=== PATIENT | male | born 1990 | race Caucasian/White ===

== ENCOUNTER 2019-10-10 09:03 | Emergency (ER) | payer MEDICAID, SELFPAY ==
[2019-10-10 09:16] VITALS: BP 132/80; PULSE 70; RESP 18; TEMP 36.6; O2SAT 100
--- NOTE | 2019-10-10 09:26 | ED.SKABFB ---
HPI - Skin/Abscess/Foreign Bdy General Stated complaint: Foreign/Abcess Time Seen by Provider: 10/10/19 09:26 Source: patient and RN notes reviewed History of Present Illness HPI narrative: Patient is a 29-year-old male who presents the urgent care with complaints of a pilonidal cyst. Patient states is been there for approximately 3 days. States that he has a strong history of pilonidal cyst and has had them drained multiple times in the past. Patient states he is also had a surgical lift to the area and the cyst continue to come back. Patient states that he now has several pits in the area and is supposed to follow-up with a surgeon for removal. Patient denies any fever, chills, nausea, vomiting. States that he has been doing sitz bath and warm compress. No other acute complaints. No acute distress noted. Patient read the plan of care. Related Data Allergies Allergy/AdvReac Type Severity Reaction Status Date / Time methylphenidate Allergy Unknown Unknown Verified 10/10/19 09:30 ciprofloxacin Allergy Hives Verified 10/10/19 09:30 sulfamethoxazole Allergy Hives Verified 10/10/19 09:30 trimethoprim Allergy Hives Verified 10/10/19 09:30 Review of Systems Review of Systems: Narrative: CONSTITUTIONAL: Denies fever, chills, or sweats. EYES: Denies visual changes, redness, or discharge. ENT: Denies rhinorrhea, congestion, sore throat, or otalgia. CARDIOVASCULAR: Denies chest pain, palpitations, or edema. RESPIRATORY: Denies cough or dyspnea. GASTROINTESTINAL: Denies abdominal pain, nausea, vomiting, or diarrhea. GENITOURINARY: Denies dysuria or hematuria. SKIN: Reports of a pilonidal cyst MUSCULOSKELETAL: Denies back pain, joint pain, or myalgia. NEUROLOGIC: Denies headache, numbness, or weakness. All other systems reviewed are negative, except as documented in HPI. PMFSH Comments At the time of my signature, I reviewed and agree with the nursing past medical, surgical, social, and family history. There is no relevant family history pertinent to the patient complaint. Exam Narrative: Exam Narrative: GENERAL: This is a well-nourished, well-developed patient, in no apparent distress. HEAD: normocephalic, atraumatic. EYES: PERRL. Sclera clear/white. Vision is grossly intact. EARS: External ears normal NOSE: External nose normal with no obvious nasal discharge, nares without redness, no rhinorrhea. THROAT: Mucous membranes moist NECK: Neck supple SKIN: Nonfluctuant non-erythemic pilonidal cyst measuring approximately 1 cm with surrounding scar tissue, without drainage NEURO: awake, alert, and oriented to person, place and time. There were no obvious focal neurologic abnormalities. EXTREMITIES: No clubbing, cyanosis, or edema. Course Vital Signs Vital signs: Vital Signs Temperature 97.8 F 10/10/19 09:16 Pulse Rate 70 10/10/19 09:16 Respiratory Rate 18 10/10/19 09:16 Blood Pressure 132/80 10/10/19 09:16 Pulse Oximetry 100 10/10/19 09:16 Temperature 97.8 F 10/10/19 09:16 Pulse Rate 70 10/10/19 09:16 Respiratory Rate 18 10/10/19 09:16 Blood Pressure 132/80 10/10/19 09:16 Pulse Oximetry 100 10/10/19 09:16 Reviewed MDM - Skin/Abscess/Foreign Bdy MDM Narrative Medical decision making narrative: Advised the patient to follow-up with the surgeon that is post to be removing the pilonidal cyst. Patient is aware that the cysts are recurrent and until the surgical removal is obtained, it is likely they will continuously come back. The cyst is currently nonfluctuant and does appear to have a lot of surrounding scar tissue, therefore it is not ready to be lanced. Advised the patient to continue using sitz bath, warm compress, and complete oral antibiotic regimen as prescribed. Make sure to eat and drink with the medication. If the area begins to drain, make sure to keep it very clean with plain Dial soap and water and cover if necessary. Wear loose clothing. If you develop any increase in pain asso
== END 2019-10-10 09:30 | disposition home or self-care (01) ==
PROVIDERS: Emergency Provider Nurse Practitioner Family
DX: L05.91 Pilonidal cyst without abscess (principal)
CPT/HCPCS: 99203; G0463